=== PATIENT | male | born 1995 | race Two or more races ===

== ENCOUNTER 2022-02-12 10:50 | Emergency (ER) | payer OTHER ==
[~2022-02-12] VITALS: Ht 162.6 cm; Wt 71.7 kg
[2022-02-12] MEDS ORDERED: PREP (11:04)
== END 2022-02-12 19:08 | disposition home or self-care (01) ==
LOC: ER 10:50
DX: R10.84 Generalized abdominal pain (principal); R10.2 Pelvic and perineal pain

== ENCOUNTER 2022-08-07 08:38 | Inpatient (IN) | payer OTHER ==
[~2022-08-07] VITALS: Ht 165.1 cm; Wt 70.8 kg
[~2022-08-07 08:38] MED LIST: PREP
[2022-08-07] MEDS ORDERED: DESCOVY 200-251 EACH (08:50)
== END 2022-08-09 20:24 | disposition home or self-care (01) | DRG 343 ==
LOC: ER 08:38 → MEDJ 16:07 → SEC-K 16:07 → MEDJ 18:58
PROVIDERS: Specialist; ADMIT Internal Medicine; ATTEND Internal Medicine
PROC: BW21Y0Z Computerized Tomography (CT Scan) of Abdomen and Pelvis using Other Contrast, Unenhanced and Enhanced (ICD-10-PCS; 2022-08-07)
PROC: 0DTJ4ZZ Resection of Appendix, Percutaneous Endoscopic Approach (ICD-10-PCS; principal; 2022-08-08 22:45)
DX: K35.80 Unspecified acute appendicitis (principal); D72.829 Elevated white blood cell count, unspecified; Z20.822 Contact with and (suspected) exposure to COVID-19